=== PATIENT | male | born 1985 | race Caucasian/White ===

== ENCOUNTER → 2020-05-08 | Outpatient (CLI) | payer OTHER ==
--- NOTE | 2020-05-08 10:51 | Diagnostic Imaging Report ---
EXAM: Ultrasound extremity limited nonvascular INDICATION: ^[id number] ^[id number] ^ENLARGEMENT OF LYMPH NODE COMPARISON: None TECHNIQUE: Transverse and longitudinal images of the region of interest were obtained. FINDINGS: Within the medial left elbow there is a complex heterogeneous hyperechoic and hypoechoic mass measuring 3.9 x 1.4 x 2.7 cm with internal vascularity. IMPRESSION: Complex heterogeneous 2.9 cm lesion within the medial left arm at the level of the elbow. Findings are concerning for mass versus severely enlarged lymph node versus possible hematoma. Correlate with any recent history of trauma. Signed by: Marck Tam MD on 05/08/2020 10:48 AM
== END ==
LOC: US 08:21
PROVIDERS: ATTEND Family Medicine
DX: R59.9 Enlarged lymph nodes, unspecified (principal)
CPT/HCPCS: 76882